=== PATIENT | male | born 1935 | race Caucasian/White ===

== ENCOUNTER → 2022-03-18 11:55 | Outpatient (CLI) | payer MEDICARE, SELFPAY ==
--- NOTE | 2022-03-18 | DI.MRI.S_ITS ---
PROCEDURE: MR HEAD/BRAIN WO CON INDICATIONS: RIGHT SIDE WEAKNESS TECHNIQUE: Non-contrast axial T1 spin echo, axial T2 fast spin echo, sagittal and axial FLAIR, coronal T2 fast spin echo, axial gradient echo, axial diffusion and ADC through the brain. COMPARISON: [facility], MR, BRAIN WITHOUT CONTRAST, 08/19/2016, 9:28. FINDINGS: Image quality: Excellent. CSF spaces: Ventricles appear symmetric, yet our abnormally prominent and are larger than would be expected for the degree of sulcal atrophy. Basal cisterns are patent. No extra-axial fluid collections. Brain: Within the left cerebral peduncle, there is a small focus of increased diffusion-weighted signal seen, as on series 15, image 66, with associated developing T2 weighted signal, as on series 11, image 12. Mild associated dark signal can be seen on the ADC map. No intracranial bleeds or mass effects. There is cerebral volume loss for age. There are periventricular and deep white matter chronic small vessel ischemic changes. Brainstem appears normal. No chronic ischemic insults. Normal intravascular flow voids are present. Skull and face: Calvarial bone marrow is normal in signal. Orbits are normal. Note is made of bilateral lens replacements. Sinuses: Moderate mucosal thickening can be seen involving the left maxillary sinus. The paranasal sinuses otherwise appear clear. No abnormal fluid is seen within the mastoid air cells. 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 Prominent lateral ventricles can be seen, which are larger than would be expected for the degree of sulcal atrophy. The appearance is similar to 2017. Please consider normal pressure hydrocephalus. Dictated by: Quinn Franklin M.D. on 03/18/2022 at 12:51 Transcribed by: BONITA on 03/18/2022 at 13:09 Approved by: Quinn Franklin M.D. on 03/18/2022 at 14:40
== END ==
PROVIDERS: Family Provider Nurse Practitioner Family; PCP Nurse Practitioner Family
DX: I63.512 Cerebral infarction due to unspecified occlusion or stenosis of left middle cerebral artery
CPT/HCPCS: 70551